=== PATIENT | female | born 1970 | race Caucasian/White ===

== ENCOUNTER → 2017-04-03 | Outpatient (CLI) | payer BC ==
[~2017-04-03] MED LIST: ATIVAN1 MG PO; CELEXA40 MG PO; KEPPRA1000 MG PO; LAMICTAL150 M1 PO; MOBIC15 MG PO; PERCOCET 5/31 TABLET PO; TOPAMAX100 MG PO; TOPROL XL50 MG PO
== END | disposition home or self-care (01) ==
LOC: RAD 12:22
DX: M19.011 Primary osteoarthritis, right shoulder (principal)
CPT/HCPCS: 71120

== ENCOUNTER → 2017-04-05 | Outpatient (CLI) | payer BC | END | disposition home or self-care (01) | LOC: RAD 08:21 | DX: R22.1 Localized swelling, mass and lump, neck (principal) | CPT/HCPCS: 76536 ==